=== PATIENT | male | born 1995 | race Caucasian/White ===

== ENCOUNTER 2020-09-27 01:10 | Emergency (ER) | payer OTHER ==
[~2020-09-27] VITALS: Ht 165.1 cm; Wt 65.8 kg
[2020-09-27 01:16] VITALS: Ht 165.1 cm; Wt 65.8 kg
[2020-09-27 02:03] VITALS: BP 99/73
== END 2020-09-27 02:03 | disposition other institution (70) ==
LOC: ED 01:10
DX: Z02.89 Encounter for other administrative examinations (principal)